=== PATIENT | female | born 1990 | race Caucasian/White ===

== ENCOUNTER 2024-06-29 21:35 | Emergency (ER) | payer BC, SELFPAY ==
[2024-06-29 21:35] VITALS: BP 147/96
[2024-06-29 22:13] VITALS: BMI 23.3
--- NOTE | 2024-06-29 22:35 | ED.GENMED ---
History of Present Illness
General
Chief Complaint: Urinary Symptoms
Time Seen by Provider: 06/29/24 22:05
History of Present Illness
History of Present Illness:
34-year-old female without significant past medical history presenting to the emergency department for persistent urinary symptoms. Patient reports for the past week she has been having polyuria. She went to urgent care 2 days ago and was told
that she had a urinary tract infection. She was started on Bactrim. That night after starting Bactrim, started to have chills. She felt better the following day, however worsened today with persistent chills, worsening polyuria and now dysuria.
Also notes that she has been having some dyspnea and palpitations. Denies any chest pain. Denies any history of PE, recent surgery, recent travel, exogenous estrogen. Reports abdominal bloating without pain. Denies any abnormal discharge.
Reports last menstrual period was at the end of May. Denies additional acute medical complaints
Phy Exam
Physical Exam
Physical Exam:
General: Well-appearing, no clinical signs of dehydration, nontoxic and in no acute distress
HEENT: protecting airway
Neck: appears supple
CV: Normal heart rate, regular rhythm
Resp: No accessory muscle use, no increased work of breathing, lungs clear to auscultation bilaterally
Abd: Soft and non-distended, no tenderness to palpation
Extremities: No deformities, no swelling
Neuro: alert, no focal neurologic deficit
: deferred
Rectal: deferred
Psych: Normal affect
Skin: Intact
Course
Orders/Labs/Results
Orders:
Orders
06/29/24 22:10
Test Result ONCE
06/29/24 22:23
Electrocardiogram (*1) Urgent
Reason for Study: Palpitations
EKG- Treatment ONCE
06/29/24 22:34
, Urine Qualitative Screen [HCG, Urine Qualitative Screen] Urgent
Date Specimen was Collected: 06/29/24
Time Specimen was Collected: 22:10
Urinalysis Reflex To Culture Urgent
Date Specimen was Collected: 06/29/24
Time Specimen was Collected: 22:10
Vital Signs
Initial and Last Documented VS:
Initial Vital Signs
Temp Pulse Resp BP Pulse Ox
98.0 F 101 18 147/96 99
06/29/24 21:35 06/29/24 21:35 06/29/24 21:35 06/29/24 21:35 06/29/24 21:35
Last Documented Vital Signs
Temp Pulse Resp BP Pulse Ox
98.0 F 101 18 147/96 99
06/29/24 21:35 06/29/24 21:35 06/29/24 21:35 06/29/24 21:35 06/29/24 21:35
MDM/Problems Addressed
MDM/Problems Addressed:
34-year-old with significant past medical history presenting for polyuria, polydipsia, abdominal bloating, chills. Patient on Bactrim. Vital signs significant for mild tachycardia, which resolved without intervention.
On exam, patient is very well-appearing, nontoxic. Benign cardiac and pulmonary exam. Regarding palpitations, will screen with EKG. Patient denies pain or concern for ACS. With normalized heart rate, patient PERC negative for PE. Suspect the
patient may have a antibody type abdominal, however no concern for true allergy. Regarding persistent urinary symptoms, suspected UTI. No concern for pyelonephritis, without CVA tenderness, afebrile. No tenderness of the abdomen, without concern
for serious intra-abdominal process or infection. No indication for advanced imaging. Will change patient's antibiotic to Keflex. Urine culture sent. Otherwise feel patient stable for discharge with close interval follow-up with primary care
doctor. Return precautions discussed and patient verbalized understanding.
*EKG
Interpreted by ED Provider?: Yes
EKG Intrepretation Date: 06/29/24
EKG Intrepretation Time: 22:52
Interpretation: normal
Comparison EKG: no comparison EKG present
Heart Rate: 73
Rate: normal
Rhythm: sinus
Ericson: normal axis
Interval: normal interval
QRS Pattern: normal QRS
Ischemia: non-specific ST changes
*Critical Care Note
Total Time (30-74mins, 75-104mins- exclusive of procedures): Not Applicable
ED Attending Note
-
Portions of this chart may have been created with voice recognition software.� Occasional wrong word or��sound alike� substitutions may have occurred due to the inherent limitations of voice recognition software.
Discharge Plan
Departure
Prescriptions:
No Action
Pepcid
1 tab PO DAILY
Vitamin Tablet
1 tab PO DAILY
acetaminophen 325 MG tablet
650 mg PO Q4HPRN PRN (Reason: mild pain) 0RF
ibuprofen 600 MG tablet
600 mg PO Q4HPRN PRN (Reason: moderate pain/cramps) 0RF
Referrals:
NONE,* [Family Provider] -
Interventions
Interventions:
*General Assessment Last Done: 06/29/24 21:35
Discharge Date and Time
Print Language: [id number]
[2024-06-29 22:42] LABS: Urine Albumin Negative (Neg - Trace); Urine Bilirubin Negative (Negative); Urine Character Clear (Clear); Urine Color Yellow; Urine Glucose Negative (Negative); Urine Ketone Negative (Negative); Urine Leukocyte Negative (Negative); Urine Nitrite Negative (Negative); Urine Occult Blood Negative (Negative); Urine Specific Gravity 1.005 (<1.030); Urine Urobilinogen Negative (Neg - 1+); Urine pH 6.5 (5.0-9.0)
[2024-06-29 22:43] LABS: HCG, Urine Qualitative Screen Negative
[2024-06-29] MEDS: KEFLEX 500 MG PO (22:57)
== END 2024-06-29 23:16 | disposition home or self-care (01) ==
LOC: EMR 21:35
PROVIDERS: EMERGENCY PHYSICIAN Student in an Organized Health Care Education/Training Program
DX: N39.0 Urinary tract infection, site not specified (principal); R35.89 Other polyuria; Z87.440 Personal history of urinary (tract) infections
CPT/HCPCS: 99282; 81003; 81025; 93005

== ENCOUNTER → 2024-08-13 10:33 | Outpatient (REF) | payer BC, SELFPAY | LOC: HWRAD 10:33 | PROVIDERS: ATTENDING PHYSICIAN Obstetrics & Gynecology; FAMILY PHYSICIAN Nurse Practitioner Family | DX: R10.2 Pelvic and perineal pain (principal) | CPT/HCPCS: 76830; 76856 ==

== ENCOUNTER → 2024-08-21 08:19 | Outpatient (REF) | payer BC, SELFPAY | LOC: HWRAD 08:19 | PROVIDERS: ATTENDING PHYSICIAN Nurse Practitioner Family; FAMILY PHYSICIAN Nurse Practitioner Family | DX: R14.0 Abdominal distension (gaseous) (principal) | CPT/HCPCS: 76700 ==